=== PATIENT | male | born 1970 | race Caucasian/White ===

== ENCOUNTER 2024-05-29 14:53 | Emergency (ER) | payer OTHER ==
[~2024-05-29] VITALS: Ht 177.8 cm; Wt 110.8 kg
[2024-05-29] MEDS: LIDOCAINE 2% MDV 20ML VIAL SC ONE (17:40)
[2024-05-29] MEDS ORDERED: CEPH500C PO (18:27)
[2024-05-29 18:40] VITALS: BP 174/100; TEMP 97.2; O2SAT 96
== END 2024-05-29 18:42 | disposition home or self-care (01) ==
LOC: M ED 14:53
DX: S61.012A Laceration without foreign body of left thumb without damage to nail, initial encounter (principal); W31.2XXA Contact with powered woodworking and forming machines, initial encounter; Y92.009 Unspecified place in unspecified non-institutional (private) residence as the place of occurrence of the external cause; Y93.9 Activity, unspecified; Y99.9 Unspecified external cause status

== ENCOUNTER 2025-05-09 17:10 | Observation (INO) | payer OTHER ==
[~2025-05-09] VITALS: Ht 180.3 cm; Wt 112.9 kg
[~2025-05-09 17:10] MED LIST: CEPH500C PO
[2025-05-09] MEDS ORDERED: ISOVUE-370 76% 100 ML VIAL As Ordered ONE (17:32)
[2025-05-09 17:50] LABS: BASO # 0.1 10^3/uL (0.0-0.2); BASO % 0.7 % (0.0-1.0); EOS # 0.4 10^3/uL (0.0-0.5); EOS % 4.6 % (0.0-3.0); LYMPH # 2.9 10^3/uL (1.5-5.0); LYMPH % 31.6 % (24.0-44.0); MONO # 0.8 10^3/uL (0.0-0.8); MONO % 8.3 % (2.0-8.0); NEUTROPHILS # 5.0 10^3/uL (1.5-8.5); NEUTROPHILS % 54.5 % (36.0-66.0); PLATELET COUNT, AUTOMATED 222 10^3/uL (150-450)
[2025-05-09 18:03] LABS: INR 0.86
[2025-05-09 18:11] LABS: CK-MB VALUE MASS 3.0 NG/ML (<3.6)
[2025-05-09] MEDS ORDERED: LABETALOL 100 MG/20 ML VIAL IV STA (18:12)
[2025-05-09 18:13] LABS: CALCIUM LEVEL 9.4 MG/DL (8.5-10.1); CARBON DIOXIDE LEVEL 29 MMOL/L (20-31); CHLORIDE LEVEL 104 MMOL/L (98-107); CPK CREATINE PHOSPHOKINASE 156 U/L (46-171); CREATININE FOR GFR 0.96 MG/DL (0.70-1.30); GLOMERULAR FILTRATION RATE > 90.0 (>56); MB/CK RELATIVE INDEX 1.92 (< OR =4); POTASSIUM SERUM 4.1 MMOL/L (3.5-5.1); SODIUM LEVEL 141 MMOL/L (136-145)
[2025-05-09] MEDS: ASPIRIN 325 MG TAB PO ONE (19:18)
[2025-05-09 19:27] LABS: ALT/SGPT 43 U/L (7.0-40); AST/SGOT 28 U/L (<34); CHOLESTEROL LEVEL 196 MG/DL (<200); CHOLESTEROL RISK RATIO 3.71 (<5); LDL CHOLESTEROL 93.0 MG/DL (<100); NON-HDL-C 143.2 MG/DL; TRIGLYCERIDES LEVEL 251 MG/DL (<150)
[2025-05-09 19:51] LABS: ESTIMATED AVERAGE GLUCOSE 123.0 MG/DL (60-110)
[2025-05-09] MEDS ORDERED: ACETAMINOPHEN 325 MG TAB PO PRN (20:30)
[2025-05-09] MEDS ORDERED: ATORVASTATIN 20 MG TAB PO SCH (20:35)
[2025-05-09] MEDS: ATORVASTATIN 20 MG TAB PO SCH (22:26)
[2025-05-09 23:24] VITALS: BP 160/77; TEMP 97; O2SAT 96
[2025-05-10] VITALS (7 sets, daily range): BP systolic 124–156; BP diastolic 67–87; TEMP 97.2–98.6; O2SAT 79–99
[2025-05-10 07:36] LABS: PLATELET COUNT, AUTOMATED 184 10^3/uL (150-450)
[2025-05-10 08:19] LABS: CALCIUM LEVEL 8.9 MG/DL (8.5-10.1); CARBON DIOXIDE LEVEL 26 MMOL/L (20-31); CHLORIDE LEVEL 104 MMOL/L (98-107); CREATININE FOR GFR 0.89 MG/DL (0.70-1.30); GLOMERULAR FILTRATION RATE > 90.0 (>56); POTASSIUM SERUM 4.2 MMOL/L (3.5-5.1); SODIUM LEVEL 140 MMOL/L (136-145)
[2025-05-10] MEDS ORDERED: ATOR1TAB21 PO (08:31)
[2025-05-10] MEDS ORDERED: TADA20TA PO (08:31)
[2025-05-10] MEDS ORDERED: HOME MED LIST COMPLETE! XX SCH (08:35)
[2025-05-10] MEDS: HEPARIN SOD 5000 UNITS/ML 1 ML VIAL/SYRINGE SC SCH (08:51)
[2025-05-10] MEDS: ASPIRIN 81 MG CHEWABLE TABLET PO SCH (08:51)
[2025-05-10] MEDS ORDERED: ASPI81CH8 PO (15:46)
[2025-05-10] MEDS ORDERED: ATOR80TA59 PO (15:46)
[2025-05-10] MEDS: amLODIPine 5 MG TAB PO SCH (15:53)
[2025-05-10] MEDS ORDERED: AMLO1TAB24 PO (17:55)
== END 2025-05-10 18:08 | disposition home or self-care (01) ==
LOC: M ED 17:10 → M ED INP 17:11 → M MS4PR 23:10
PROVIDERS: ADMIT Student in an Organized Health Care Education/Training Program; ATTEND Student in an Organized Health Care Education/Training Program
DX: G45.9 Transient cerebral ischemic attack, unspecified (principal); R20.0 Anesthesia of skin; I10 Essential (primary) hypertension; E78.5 Hyperlipidemia, unspecified; E66.9 Obesity, unspecified; Z68.35 Body mass index [BMI] 35.0-35.9, adult; Z72.0 Tobacco use; Z63.79 Other stressful life events affecting family and household; F10.90 Alcohol use, unspecified, uncomplicated
CPT/HCPCS: 36415; 70450; 70496; 70498; 70551; 71045; 80047; 80048; 80061; 80076; 82550; 82553; 83036; 84484; 85025; 85027; 85610; 85730; 93005; 93041; 93306; 93880; 94760; 96372; 99285; Q9967